=== PATIENT | male | born 1975 | race Caucasian/White ===

== ENCOUNTER 2018-07-11 11:28 | Emergency (ER) | payer SELFPAY ==
[~2018-07-11] VITALS: Ht 190.5 cm; Wt 101.0 kg
[2018-07-11 11:52] VITALS: BP 140/89
[2018-07-11] MEDS ORDERED: HYDROcodone/APAP 5/325 TABLET ONE (12:06)
[2018-07-11] MEDS ORDERED: HYDROcodone/APAP 5/325 TABLET PO ONE (12:30)
== END 2018-07-11 13:06 | disposition home or self-care (01) ==
LOC: ED 13:00
DX: S60.221A Contusion of right hand, initial encounter (principal); S67.21XA Crushing injury of right hand, initial encounter; X58.XXXA Exposure to other specified factors, initial encounter; Y93.89 Activity, other specified; Y92.009 Unspecified place in unspecified non-institutional (private) residence as the place of occurrence of the external cause; Y99.8 Other external cause status
CPT/HCPCS: 29125; 99283